=== PATIENT | male | born 1930 | race Caucasian/White ===

== ENCOUNTER 2018-07-25 11:01 | Inpatient (IN) ==
[2018-07-25] MEDS ORDERED: KETOROLAC 15 MG/1 ML VIAL IV PRN (15:12)
[2018-07-25] MEDS ORDERED: ALBUTEROL/IPRATROPIUM 3 ML NEB RESP TX PRN (15:12)
[2018-07-25] MEDS ORDERED: ONDANSETRON 4 MG/2 ML VIAL IV PRN (15:12)
[2018-07-25] MEDS ORDERED: GLUCAGON 1 MG VIAL IM PRN ×2 (15:12→20:40)
[2018-07-25] MEDS ORDERED: DEXTROSE 50% 25 GM/50 ML SYRINGE IV PRN (15:12)
[2018-07-25] MEDS ORDERED: NITROGLYCERIN SL 0.4 MG TABLET SL PRN (15:16)
[2018-07-25] MEDS: LACTATED RINGERS 1,000 ML IV SCH (16:20)
[2018-07-25] MEDS: POLYETHYLENE GLYCOL POWDER 17 GM PACK PO SCH (17:00)
[2018-07-25] MEDS: amLODIPine 2.5 MG TABLET PO SCH (17:00)
[2018-07-25] MEDS: SIMVASTATIN 10 MG TABLET PO SCH (17:01)
[2018-07-25] MEDS: INSULIN LISPRO 100 UNIT/ML SUBCUT SCH (17:15)
[2018-07-25] MEDS: PANTOPRAZOLE 40 MG TABLET PO SCH (17:15)
[2018-07-25] MEDS: glipiZIDE 10 MG TABLET PO SCH (17:15)
[2018-07-25] MEDS: ALBUTEROL/IPRATROPIUM 3 ML NEB RESP TX SCH (19:09)
[2018-07-25] MEDS ORDERED: DEXTROSE 50% 25 GM/50 ML VIAL IV PRN (20:40)
[2018-07-25] MEDS: MAGNESIUM OXIDE 400 MG TABLET PO SCH (21:13)
[2018-07-25] MEDS: GABAPENTIN 300 MG CAPSULE PO SCH (21:13)
[2018-07-25] MEDS: RANOLAZINE 500 MG TABLET PO SCH (21:13)
[2018-07-25] MEDS: INSULIN REGULAR 100 UNIT/ML SUBCUT SCH (21:17)
[2018-07-25] MEDS: ACETAMINOPHEN 325 MG TABLET PO PRN (21:18)
[2018-07-25] MEDS ORDERED: SODIUM CHLORIDE 0.9% 250 ML IV ONE (23:36)
[2018-07-25 23:54] LABS: Basophils % 0.3 % (0.0-0.8); Hematocrit 27.5 VOL% (42.0-52.0); Hemoglobin 8.7 GM/DL (14.0-18.0); Immature Granulocytes Absolute 0.08 #; Lymphocytes # 0.8 10*3/uL (1.4-4.0); Lymphocytes % 10.6 % (21.2-54.2); Mean Corpuscular HGB Conc 31.6 GM/DL (32-36); Mean Corpuscular Hemoglobin 29 PG (27-34); Mean Corpuscular Volume 91.7 FL (87-102); Mean Platelet Volume 10.4 FL (9.6-12.0); Monocytes # 0.4 10*3/uL (0.11-0.8); Monocytes % 5.3 % (1.7-12.7); Neutrophils # 6.4 10*3/uL (1.4-7.4); Neutrophils % 82.8 % (38.7-73.9); Platelet Count 333 T/CUMM (130-400); Red Cell Distribution Width 13.2 % (9.3-17.3); White Blood Count 7.7 T/CUMM (4-12)
[2018-07-26 00:17] LABS: Bilirubin,Total 0.4 MG/DL (0.2-1.0); Calcium 8.3 MG/DL (8.5-10.1); Osmolality,Calculated 288.2 MOS/KG (273-304); Potassium 4.7 MMOL/L (3.5-5.1); Total Protein 6.7 G/DL (6.4-8.3)
[2018-07-26 00:32] LABS: ABG Base Excess -1.1 MMOL/L (-2.5-2.5); ABG HCO3 23.5 MMOL/L (20-26); ABG Oxygen Saturation 95.6 % (95-100); ABG PCO2 41.4 MM HG (35-48); ABG PH 7.372 (7.35-7.45); ABG PO2 78.5 MM HG (80-95); ABG TCO2 22.2 MMOL/L (23-27); Allen Test Positive
[2018-07-26] MEDS: ALBUTEROL/IPRATROPIUM 3 ML NEB RESP TX SCH ×4 (00:40→20:18)
[2018-07-26 05:23] LABS: Basophils % 0.2 % (0.0-0.8); Hematocrit 25.5 VOL% (42.0-52.0); Hemoglobin 8.1 GM/DL (14.0-18.0); Immature Granulocytes % 0.5 %; Immature Granulocytes Absolute 0.05 #; Lymphocytes % 10.4 % (21.2-54.2); Mean Corpuscular HGB Conc 31.8 GM/DL (32-36); Mean Corpuscular Hemoglobin 29 PG (27-34); Mean Corpuscular Volume 91.1 FL (87-102); Mean Platelet Volume 10.4 FL (9.6-12.0); Monocytes # 0.7 10*3/uL (0.11-0.8); Neutrophils # 7.9 10*3/uL (1.4-7.4); Neutrophils % 81.9 % (38.7-73.9); Platelet Count 292 T/CUMM (130-400); Red Cell Distribution Width 13.3 % (9.3-17.3); White Blood Count 9.6 T/CUMM (4-12)
[2018-07-26 05:40] LABS: Calcium 8.4 MG/DL (8.5-10.1); Osmolality,Calculated 285.1 MOS/KG (273-304); Potassium 4.6 MMOL/L (3.5-5.1)
[2018-07-26 06:08] LABS: Apearance,Urine CLEAR (Clear); Bilirubin,Urine Negative (Negative); Blood, Urine Negative (Negative); Glucose,Urine (UA) Negative (Negative); Hyaline Casts,Urine 1 /LPF (0-3); Ketones,Urine Negative (Negative); Nitrite,Urine Negative (Negative); Protein,Urine Negative; RBC,Urine <1 /HPF (0-4); Urine Color Yellow (Yellow); Urine Specific Gravity 1.014 (1.001-1.035); Urine Urobilinogen < 2.0 EU/DL (0.2-1.0); WBC,Urine <1 /HPF (0-6)
[2018-07-26] MEDS: LEVOTHYROXINE 25 MCG TABLET PO SCH (06:43)
[2018-07-26] MEDS: LACTATED RINGERS 1,000 ML IV SCH ×2 (06:43→19:34)
[2018-07-26] MEDS: glipiZIDE 10 MG TABLET PO SCH ×2 (07:40→16:55)
[2018-07-26] MEDS: INSULIN REGULAR 100 UNIT/ML SUBCUT SCH (07:45)
[2018-07-26] MEDS: INSULIN LISPRO 100 UNIT/ML SUBCUT SCH ×3 (08:13→16:55)
[2018-07-26] MEDS ORDERED: CETIRIZINE 10 MG TABLET PO SCH (09:00)
[2018-07-26] MEDS: BISACODYL 5 MG TABLET PO SCH (09:21)
[2018-07-26] MEDS: PANTOPRAZOLE 40 MG TABLET PO SCH (09:21)
[2018-07-26] MEDS: RANOLAZINE 500 MG TABLET PO SCH ×2 (09:21→21:16)
[2018-07-26] MEDS: SIMVASTATIN 10 MG TABLET PO SCH (09:21)
[2018-07-26] MEDS: POLYETHYLENE GLYCOL POWDER 17 GM PACK PO SCH (09:22)
[2018-07-26] MEDS ORDERED: SODIUM CHLORIDE 0.9% 500 ML IV ONE ×2 (09:30→13:02)
[2018-07-26 10:32] LABS: % Iron Saturation 11.8 % (18-50)
[2018-07-26 10:41] LABS: B-Type Natriuretic Peptide 198 PG/ML (2-100)
[2018-07-26] MEDS: amLODIPine 2.5 MG TABLET PO SCH (10:44)
[2018-07-26 10:47] LABS: Folate > 24.0 NG/ML (5.4-24.0); Vitamin B12 226 PG/ML (211-911)
[2018-07-26 11:07] LABS: Free T4 (Free Thyroxine) 0.83 NG/DL (0.76-1.46); Thyroid Stimulating Hormone 4.02 uIU/ml (0.358-3.74)
[2018-07-26] MEDS: FERROUS SULFATE 325 MG TABLET PO SCH ×2 (11:44→21:16)
[2018-07-26] MEDS: CYANOCOBALAMIN 1000 MCG/1 ML VIAL IM SCH (11:44)
[2018-07-26] MEDS: SODIUM CHLORIDE 0.9% 1,000 ML IV SCH ×2 (14:30→21:16)
[2018-07-26] MEDS: GABAPENTIN 300 MG CAPSULE PO SCH (21:16)
[2018-07-26] MEDS: ASCORBIC ACID 500 MG TABLET PO SCH (21:17)
[2018-07-27] MEDS: SODIUM CHLORIDE 0.9% 1,000 ML IV SCH ×4 (01:42→21:13)
[2018-07-27] MEDS: ALBUTEROL/IPRATROPIUM 3 ML NEB RESP TX SCH ×4 (02:07→19:13)
[2018-07-27 04:58] LABS: Calcium 7.8 MG/DL (8.5-10.1); Osmolality,Calculated 285.4 MOS/KG (273-304)
[2018-07-27 05:49] LABS: Basophils % 0.4 % (0.0-0.8); Eosinophils # 0.1 10*3/uL (0.0-0.87); Eosinophils % 1.7 % (0.00-10.9); Hematocrit 18.4 VOL% (42.0-52.0); Immature Granulocytes % 0.7 %; Immature Granulocytes Absolute 0.06 #; Lymphocytes # 1.1 10*3/uL (1.4-4.0); Mean Corpuscular HGB Conc 32.6 GM/DL (32-36); Mean Corpuscular Hemoglobin 30 PG (27-34); Mean Corpuscular Volume 91.5 FL (87-102); Mean Platelet Volume 10.5 FL (9.6-12.0); Monocytes # 0.6 10*3/uL (0.11-0.8); Monocytes % 7.6 % (1.7-12.7); NRBC # 0.03 10*3/uL; Neutrophils # 6.3 10*3/uL (1.4-7.4); Neutrophils % 76.6 % (38.7-73.9); Platelet Count 180 T/CUMM (130-400); Red Blood Count 2.01 MC/CUMM (3.8-5.5); Red Cell Distribution Width 13.5 % (9.3-17.3); White Blood Count 8.2 T/CUMM (4-12)
[2018-07-27] MEDS: LEVOTHYROXINE 25 MCG TABLET PO SCH (06:39)
[2018-07-27] MEDS ORDERED: SODIUM CHLORIDE 0.9% 1,000 ML IV PRN (07:05)
[2018-07-27 08:57] LABS: Basophils % 0.4 % (0.0-0.8); Eosinophils # 0.2 10*3/uL (0.0-0.87); Eosinophils % 2.7 % (0.00-10.9); Hematocrit 18.3 VOL% (42.0-52.0); Immature Granulocytes % 0.8 %; Immature Granulocytes Absolute 0.07 #; Lymphocytes # 1.3 10*3/uL (1.4-4.0); Lymphocytes % 14.9 % (21.2-54.2); Mean Corpuscular HGB Conc 31.7 GM/DL (32-36); Mean Corpuscular Hemoglobin 29 PG (27-34); Mean Corpuscular Volume 92.9 FL (87-102); Mean Platelet Volume 10.7 FL (9.6-12.0); Monocytes # 0.9 10*3/uL (0.11-0.8); NRBC # 0.02 10*3/uL; Neutrophils % 71.2 % (38.7-73.9); Platelet Count 178 T/CUMM (130-400); Red Blood Count 1.97 MC/CUMM (3.8-5.5); Red Cell Distribution Width 13.6 % (9.3-17.3); White Blood Count 8.5 T/CUMM (4-12)
[2018-07-27] MEDS ORDERED: ASPIRIN EC 81 MG TABLET PO SCH (09:00)
[2018-07-27 09:03] LABS: Hemoglobin 5.8 GM/DL (14.0-18.0)
[2018-07-27] MEDS: glipiZIDE 10 MG TABLET PO SCH ×2 (09:08→16:45)
[2018-07-27] MEDS: INSULIN LISPRO 100 UNIT/ML SUBCUT SCH ×3 (09:08→16:45)
[2018-07-27] MEDS: RANOLAZINE 500 MG TABLET PO SCH ×2 (09:09→21:28)
[2018-07-27] MEDS: POLYETHYLENE GLYCOL POWDER 17 GM PACK PO SCH (09:09)
[2018-07-27] MEDS: ASCORBIC ACID 500 MG TABLET PO SCH ×2 (09:09→21:28)
[2018-07-27] MEDS: amLODIPine 2.5 MG TABLET PO SCH (09:09)
[2018-07-27] MEDS: FERROUS SULFATE 325 MG TABLET PO SCH ×2 (09:09→21:27)
[2018-07-27] MEDS: PANTOPRAZOLE 40 MG TABLET PO SCH (09:09)
[2018-07-27] MEDS: BISACODYL 5 MG TABLET PO SCH (09:09)
[2018-07-27] MEDS: SIMVASTATIN 10 MG TABLET PO SCH (09:09)
[2018-07-27] MEDS ORDERED: HALOPERIDOL 5 MG/ML AMP ONE (09:38)
[2018-07-27] MEDS ORDERED: LORazepam 2 MG/1 ML VIAL ONE (09:44)
[2018-07-27] MEDS ORDERED: HALOPERIDOL 5 MG/ML AMP IV ONE (10:07)
[2018-07-27] MEDS ORDERED: LORazepam 2 MG/1 ML VIAL IV ONE (10:08)
[2018-07-27] MEDS ORDERED: FUROSEMIDE 40 MG/4 ML VIAL IV ONE ×2 (10:47→14:35)
[2018-07-27] MEDS: HYDROmorphone 2 MG/1 ML VIAL IV PRN (12:03)
[2018-07-27] MEDS: CYANOCOBALAMIN 1000 MCG/1 ML VIAL IM SCH (13:20)
[2018-07-27 15:54] LABS: Hematocrit 27.8 VOL% (42.0-52.0); Hemoglobin 8.8 GM/DL (14.0-18.0)
[2018-07-27] MEDS ORDERED: risperiDONE 0.25 MG TABLET PO PRN (18:50)
[2018-07-27] MEDS: DOCUSATE SODIUM 100 MG CAPSULE PO SCH (21:27)
[2018-07-27] MEDS: GABAPENTIN 300 MG CAPSULE PO SCH (21:28)
[2018-07-28] MEDS: ALBUTEROL/IPRATROPIUM 3 ML NEB RESP TX SCH ×4 (01:40→20:21)
[2018-07-28 04:29] LABS: Calcium 7.8 MG/DL (8.5-10.1); Osmolality,Calculated 288.8 MOS/KG (273-304); Potassium 5.4 MMOL/L (3.5-5.1)
[2018-07-28] MEDS: LEVOTHYROXINE 25 MCG TABLET PO SCH (05:59)
[2018-07-28 07:30] LABS: Basophils % 0.2 % (0.0-0.8); Eosinophils # 0.1 10*3/uL (0.0-0.87); Eosinophils % 0.8 % (0.00-10.9); Hemoglobin 7.6 GM/DL (14.0-18.0); Immature Granulocytes % 0.8 %; Immature Granulocytes Absolute 0.07 #; Lymphocytes # 0.7 10*3/uL (1.4-4.0); Lymphocytes % 8.5 % (21.2-54.2); Mean Corpuscular HGB Conc 31.7 GM/DL (32-36); Mean Corpuscular Hemoglobin 29 PG (27-34); Mean Corpuscular Volume 91.3 FL (87-102); Mean Platelet Volume 10.5 FL (9.6-12.0); Monocytes # 0.8 10*3/uL (0.11-0.8); Monocytes % 9.1 % (1.7-12.7); NRBC # 0.03 10*3/uL; Neutrophils # 6.7 10*3/uL (1.4-7.4); Neutrophils % 80.6 % (38.7-73.9); Platelet Count 176 T/CUMM (130-400); Red Blood Count 2.63 MC/CUMM (3.8-5.5); Red Cell Distribution Width 13.9 % (9.3-17.3); White Blood Count 8.4 T/CUMM (4-12)
[2018-07-28] MEDS ORDERED: SODIUM POLYSTYRENE SULFATE 15 GM/60 ML BOTTLE PO PRN (08:35)
[2018-07-28] MEDS ORDERED: FUROSEMIDE 40 MG/4 ML VIAL IV SCH (09:00)
[2018-07-28] MEDS: POLYETHYLENE GLYCOL POWDER 17 GM PACK PO SCH (09:27)
[2018-07-28] MEDS: CYANOCOBALAMIN 1000 MCG/1 ML VIAL IM SCH (09:27)
[2018-07-28] MEDS: glipiZIDE 5 MG TABLET PO SCH ×2 (09:28→17:35)
[2018-07-28] MEDS: SIMVASTATIN 10 MG TABLET PO SCH (09:28)
[2018-07-28] MEDS: RANOLAZINE 500 MG TABLET PO SCH ×2 (09:28→21:37)
[2018-07-28] MEDS: PANTOPRAZOLE 40 MG TABLET PO SCH (09:28)
[2018-07-28] MEDS: DOCUSATE SODIUM 100 MG CAPSULE PO SCH ×2 (09:29→21:37)
[2018-07-28] MEDS: amLODIPine 2.5 MG TABLET PO SCH (09:29)
[2018-07-28] MEDS: INSULIN LISPRO 100 UNIT/ML SUBCUT SCH ×3 (09:29→17:35)
[2018-07-28] MEDS: BISACODYL 5 MG TABLET PO SCH (09:29)
[2018-07-28] MEDS: FERROUS SULFATE 325 MG TABLET PO SCH ×2 (09:29→21:37)
[2018-07-28] MEDS: SODIUM CHLORIDE 0.9% 1,000 ML IV SCH (11:34)
[2018-07-28] MEDS: CARVEDILOL 3.125 MG TABLET PO SCH ×2 (11:35→17:35)
[2018-07-28] MEDS: ASCORBIC ACID 500 MG TABLET PO SCH ×2 (11:35→21:37)
[2018-07-28] MEDS ORDERED: SODIUM CHLORIDE 0.9% 1,000 ML IV PRN (12:48)
[2018-07-28] MEDS: SODIUM BICARB INJ 100 MEQ in DEXTROSE 5% 1,000 ML IV SCH (14:34)
[2018-07-28] MEDS: LORazepam 2 MG/1 ML VIAL IV PRN (19:06)
[2018-07-28] MEDS: HYDROmorphone 2 MG/1 ML VIAL IV PRN (19:41)
[2018-07-28] MEDS: GABAPENTIN 300 MG CAPSULE PO SCH (21:37)
[2018-07-28 22:20] LABS: Hematocrit 31.4 VOL% (42.0-52.0)
[2018-07-29] MEDS: ALBUTEROL/IPRATROPIUM 3 ML NEB RESP TX SCH ×4 (00:32→19:25)
[2018-07-29 04:10] LABS: Basophils % 0.4 % (0.0-0.8); Eosinophils # 0.4 10*3/uL (0.0-0.87); Eosinophils % 4.4 % (0.00-10.9); Hematocrit 31.8 VOL% (42.0-52.0); Hemoglobin 10.3 GM/DL (14.0-18.0); Immature Granulocytes % 0.6 %; Immature Granulocytes Absolute 0.05 #; Lymphocytes # 0.8 10*3/uL (1.4-4.0); Lymphocytes % 9.8 % (21.2-54.2); Mean Corpuscular HGB Conc 32.4 GM/DL (32-36); Mean Corpuscular Hemoglobin 29 PG (27-34); Mean Corpuscular Volume 89.1 FL (87-102); Mean Platelet Volume 10.3 FL (9.6-12.0); Monocytes # 0.9 10*3/uL (0.11-0.8); Monocytes % 11.4 % (1.7-12.7); NRBC # 0.04 10*3/uL; Neutrophils # 5.9 10*3/uL (1.4-7.4); Neutrophils % 73.4 % (38.7-73.9); Platelet Count 166 T/CUMM (130-400); Red Blood Count 3.57 MC/CUMM (3.8-5.5); Red Cell Distribution Width 14.5 % (9.3-17.3)
[2018-07-29 04:20] LABS: PT Patient Result 11.3 SECS; Partial Thromboplastin Time 28.6 SECS (0-40)
[2018-07-29 04:32] LABS: Potassium 4.3 MMOL/L (3.5-5.1)
[2018-07-29] MEDS: SODIUM BICARB INJ 100 MEQ in DEXTROSE 5% 1,000 ML IV SCH (05:39)
[2018-07-29] MEDS: LEVOTHYROXINE 25 MCG TABLET PO SCH (06:59)
[2018-07-29] MEDS: glipiZIDE 5 MG TABLET PO SCH ×2 (08:01→16:12)
[2018-07-29] MEDS: INSULIN LISPRO 100 UNIT/ML SUBCUT SCH ×3 (09:00→17:55)
[2018-07-29] MEDS: DOCUSATE SODIUM 100 MG CAPSULE PO SCH (09:03)
[2018-07-29] MEDS: PANTOPRAZOLE 40 MG TABLET PO SCH (09:04)
[2018-07-29] MEDS: CARVEDILOL 3.125 MG TABLET PO SCH ×2 (09:50→16:13)
[2018-07-29] MEDS: BISACODYL 5 MG TABLET PO SCH (09:50)
[2018-07-29] MEDS: FERROUS SULFATE 325 MG TABLET PO SCH (09:50)
[2018-07-29] MEDS: ASCORBIC ACID 500 MG TABLET PO SCH (09:51)
[2018-07-29] MEDS: FUROSEMIDE 40 MG TABLET PO SCH (09:51)
[2018-07-29] MEDS: amLODIPine 2.5 MG TABLET PO SCH (09:51)
[2018-07-29] MEDS: RANOLAZINE 500 MG TABLET PO SCH (09:51)
[2018-07-29] MEDS: SIMVASTATIN 10 MG TABLET PO SCH (09:51)
[2018-07-29] MEDS: POLYETHYLENE GLYCOL POWDER 17 GM PACK PO SCH (09:51)
[2018-07-29] MEDS ORDERED: HALOPERIDOL 5 MG/ML AMP IV PRN (10:42)
[2018-07-29] MEDS: LORazepam 2 MG/1 ML VIAL IV PRN ×2 (15:20→23:55)
[2018-07-29] MEDS: HYDROmorphone 2 MG/1 ML VIAL IV PRN (16:48)
[2018-07-29] MEDS: HALOPERIDOL 5 MG/ML AMP IV PRN (20:14)
[2018-07-30] MEDS: ALBUTEROL/IPRATROPIUM 3 ML NEB RESP TX SCH ×4 (00:31→19:36)
[2018-07-30] MEDS: RANOLAZINE 500 MG TABLET PO SCH ×3 (00:41→20:00)
[2018-07-30] MEDS: DOCUSATE SODIUM 100 MG CAPSULE PO SCH ×3 (00:41→20:00)
[2018-07-30] MEDS: FERROUS SULFATE 325 MG TABLET PO SCH ×3 (00:41→20:00)
[2018-07-30] MEDS: GABAPENTIN 300 MG CAPSULE PO SCH ×2 (00:41→20:00)
[2018-07-30] MEDS: ASCORBIC ACID 500 MG TABLET PO SCH ×3 (00:42→20:00)
[2018-07-30] MEDS: HALOPERIDOL 5 MG/ML AMP IV PRN ×3 (02:27→15:41)
[2018-07-30 05:21] LABS: Basophils % 0.4 % (0.0-0.8); Eosinophils # 0.2 10*3/uL (0.0-0.87); Hematocrit 31.6 VOL% (42.0-52.0); Hemoglobin 10.1 GM/DL (14.0-18.0); Immature Granulocytes % 0.7 %; Immature Granulocytes Absolute 0.05 #; Lymphocytes # 0.6 10*3/uL (1.4-4.0); Lymphocytes % 8.1 % (21.2-54.2); Mean Corpuscular Hemoglobin 29 PG (27-34); Mean Corpuscular Volume 89.3 FL (87-102); Monocytes # 0.9 10*3/uL (0.11-0.8); Monocytes % 11.8 % (1.7-12.7); Neutrophils # 5.8 10*3/uL (1.4-7.4); Platelet Count 193 T/CUMM (130-400); Red Blood Count 3.54 MC/CUMM (3.8-5.5); Red Cell Distribution Width 14.6 % (9.3-17.3); White Blood Count 7.6 T/CUMM (4-12)
[2018-07-30 05:42] LABS: Calcium 8.5 MG/DL (8.5-10.1); Osmolality,Calculated 286.3 MOS/KG (273-304); Potassium 3.8 MMOL/L (3.5-5.1)
[2018-07-30] MEDS: LEVOTHYROXINE 25 MCG TABLET PO SCH (06:20)
[2018-07-30] MEDS: INSULIN LISPRO 100 UNIT/ML SUBCUT SCH ×3 (08:36→17:34)
[2018-07-30] MEDS: CARVEDILOL 3.125 MG TABLET PO SCH ×2 (08:36→17:33)
[2018-07-30] MEDS: glipiZIDE 5 MG TABLET PO SCH ×2 (08:36→17:33)
[2018-07-30] MEDS: BISACODYL 5 MG TABLET PO SCH (09:22)
[2018-07-30] MEDS: FUROSEMIDE 40 MG TABLET PO SCH (09:23)
[2018-07-30] MEDS: POLYETHYLENE GLYCOL POWDER 17 GM PACK PO SCH (09:23)
[2018-07-30] MEDS: amLODIPine 2.5 MG TABLET PO SCH (09:23)
[2018-07-30] MEDS: PANTOPRAZOLE 40 MG TABLET PO SCH (09:23)
[2018-07-30] MEDS: MAGNESIUM OXIDE 400 MG TABLET PO SCH ×2 (09:23→20:00)
[2018-07-30] MEDS: SIMVASTATIN 10 MG TABLET PO SCH (09:24)
[2018-07-30] MEDS: LORazepam 2 MG/1 ML VIAL IV PRN ×2 (10:57→15:40)
[2018-07-30] MEDS ORDERED: PANTOPRAZOLE 40 MG VIAL IV SCH (12:00)
[2018-07-30] MEDS ORDERED: FUROSEMIDE 40 MG/4 ML VIAL IV SCH (16:00)
[2018-07-30] MEDS ORDERED: LORazepam 2 MG/1 ML VIAL IM PRN (18:54)
[2018-07-30] MEDS: HALOPERIDOL 5 MG/ML AMP IM PRN (20:14)
[2018-07-31] MEDS: HALOPERIDOL 5 MG/ML AMP IM PRN ×5 (00:12→21:41)
[2018-07-31] MEDS: ALBUTEROL/IPRATROPIUM 3 ML NEB RESP TX SCH ×4 (01:02→19:24)
[2018-07-31 05:38] LABS: Basophils % 0.2 % (0.0-0.8); Eosinophils # 0.1 10*3/uL (0.0-0.87); Eosinophils % 1.2 % (0.00-10.9); Hematocrit 34.7 VOL% (42.0-52.0); Immature Granulocytes % 0.7 %; Immature Granulocytes Absolute 0.07 #; Lymphocytes # 0.6 10*3/uL (1.4-4.0); Lymphocytes % 6.4 % (21.2-54.2); Mean Corpuscular HGB Conc 31.7 GM/DL (32-36); Mean Corpuscular Hemoglobin 28 PG (27-34); Mean Corpuscular Volume 89.4 FL (87-102); Mean Platelet Volume 10.8 FL (9.6-12.0); Monocytes # 1.3 10*3/uL (0.11-0.8); Monocytes % 12.6 % (1.7-12.7); Neutrophils # 7.9 10*3/uL (1.4-7.4); Neutrophils % 78.9 % (38.7-73.9); Platelet Count 249 T/CUMM (130-400); Red Blood Count 3.88 MC/CUMM (3.8-5.5); Red Cell Distribution Width 14.4 % (9.3-17.3)
[2018-07-31 05:51] LABS: Calcium 8.9 MG/DL (8.5-10.1); Potassium 3.3 MMOL/L (3.5-5.1)
[2018-07-31] MEDS: glipiZIDE 5 MG TABLET PO SCH ×2 (08:50→16:28)
[2018-07-31] MEDS: INSULIN LISPRO 100 UNIT/ML SUBCUT SCH ×3 (08:51→16:28)
[2018-07-31] MEDS: DOCUSATE SODIUM 100 MG CAPSULE PO SCH ×2 (09:05→20:03)
[2018-07-31] MEDS: FERROUS SULFATE 325 MG TABLET PO SCH ×2 (09:05→20:03)
[2018-07-31] MEDS: BISACODYL 5 MG TABLET PO SCH (09:05)
[2018-07-31] MEDS: CARVEDILOL 3.125 MG TABLET PO SCH ×2 (09:05→16:28)
[2018-07-31] MEDS: SIMVASTATIN 10 MG TABLET PO SCH (09:06)
[2018-07-31] MEDS: amLODIPine 2.5 MG TABLET PO SCH (09:06)
[2018-07-31] MEDS: ASCORBIC ACID 500 MG TABLET PO SCH ×2 (09:06→20:04)
[2018-07-31] MEDS: RANOLAZINE 500 MG TABLET PO SCH ×2 (09:06→20:04)
[2018-07-31] MEDS: MAGNESIUM OXIDE 400 MG TABLET PO SCH ×2 (09:06→20:03)
[2018-07-31] MEDS: POLYETHYLENE GLYCOL POWDER 17 GM PACK PO SCH (09:06)
[2018-07-31] MEDS: GABAPENTIN 300 MG CAPSULE PO SCH (20:04)
[2018-08-01] MEDS: ALBUTEROL/IPRATROPIUM 3 ML NEB RESP TX SCH ×4 (01:00→19:13)
[2018-08-01] MEDS: HALOPERIDOL 5 MG/ML AMP IM PRN ×2 (02:05→07:55)
[2018-08-01] MEDS: CARVEDILOL 3.125 MG TABLET PO SCH ×2 (08:38→18:10)
[2018-08-01] MEDS: BISACODYL 5 MG TABLET PO SCH (10:44)
[2018-08-01] MEDS: DOCUSATE SODIUM 100 MG CAPSULE PO SCH (10:44)
[2018-08-01] MEDS: glipiZIDE 5 MG TABLET PO SCH ×2 (10:44→18:10)
[2018-08-01] MEDS: FERROUS SULFATE 325 MG TABLET PO SCH (10:45)
[2018-08-01] MEDS: amLODIPine 2.5 MG TABLET PO SCH (10:46)
[2018-08-01] MEDS: MAGNESIUM OXIDE 400 MG TABLET PO SCH (10:46)
[2018-08-01] MEDS: POLYETHYLENE GLYCOL POWDER 17 GM PACK PO SCH (10:46)
[2018-08-01] MEDS: ASCORBIC ACID 500 MG TABLET PO SCH (10:47)
[2018-08-01] MEDS: RANOLAZINE 500 MG TABLET PO SCH (10:47)
[2018-08-01] MEDS: SIMVASTATIN 10 MG TABLET PO SCH (10:48)
[2018-08-01] MEDS: INSULIN LISPRO 100 UNIT/ML SUBCUT SCH ×3 (12:55→19:04)
[2018-08-01] MEDS ORDERED: DILTIAZEM 60 MG TABLET PO ONE (19:50)
[2018-08-01] MEDS ORDERED: CARVEDILOL 3.125 MG TABLET PO ONE (19:50)
[2018-08-02] MEDS: ALBUTEROL/IPRATROPIUM 3 ML NEB RESP TX SCH ×4 (00:23→19:57)
[2018-08-02] MEDS: FERROUS SULFATE 325 MG TABLET PO SCH ×3 (00:31→23:50)
[2018-08-02] MEDS: DOCUSATE SODIUM 100 MG CAPSULE PO SCH ×3 (00:31→23:50)
[2018-08-02] MEDS: MAGNESIUM OXIDE 400 MG TABLET PO SCH ×3 (00:32→23:50)
[2018-08-02] MEDS: RANOLAZINE 500 MG TABLET PO SCH ×3 (00:36→23:51)
[2018-08-02] MEDS: GABAPENTIN 300 MG CAPSULE PO SCH ×2 (00:36→23:50)
[2018-08-02] MEDS: ASCORBIC ACID 500 MG TABLET PO SCH ×3 (00:37→23:51)
[2018-08-02 04:44] LABS: Basophils % 0.3 % (0.0-0.8); Eosinophils # 0.2 10*3/uL (0.0-0.87); Eosinophils % 1.6 % (0.00-10.9); Hematocrit 36.9 VOL% (42.0-52.0); Hemoglobin 11.4 GM/DL (14.0-18.0); Immature Granulocytes % 0.5 %; Immature Granulocytes Absolute 0.06 #; Lymphocytes # 0.5 10*3/uL (1.4-4.0); Lymphocytes % 4.8 % (21.2-54.2); Mean Corpuscular HGB Conc 30.9 GM/DL (32-36); Mean Corpuscular Hemoglobin 28 PG (27-34); Mean Corpuscular Volume 90.7 FL (87-102); Mean Platelet Volume 10.6 FL (9.6-12.0); Monocytes % 8.8 % (1.7-12.7); Neutrophils # 9.2 10*3/uL (1.4-7.4); Platelet Count 279 T/CUMM (130-400); Red Blood Count 4.07 MC/CUMM (3.8-5.5); Red Cell Distribution Width 14.4 % (9.3-17.3)
[2018-08-02 05:00] LABS: Calcium 8.8 MG/DL (8.5-10.1); Osmolality,Calculated 290.1 MOS/KG (273-304); Potassium 3.2 MMOL/L (3.5-5.1)
[2018-08-02 05:15] LABS: Lymphocytes 5 % (20-55); Myelocytes 1 %; Platelet Estimate Normal; Segmented Neutrophils 87 % (50-85); Total Cells Counted 100
[2018-08-02 05:16] LABS: Polychromasia Few
[2018-08-02] MEDS: glipiZIDE 5 MG TABLET PO SCH ×2 (08:48→18:55)
[2018-08-02] MEDS: amLODIPine 2.5 MG TABLET PO SCH (08:48)
[2018-08-02] MEDS: POTASSIUM CHLORIDE 20 MEQ/15 ML UDCUP PO PRN (08:49)
[2018-08-02] MEDS: CARVEDILOL 3.125 MG TABLET PO SCH ×2 (08:49→18:56)
[2018-08-02] MEDS: INSULIN LISPRO 100 UNIT/ML SUBCUT SCH ×3 (08:49→18:56)
[2018-08-02] MEDS: BISACODYL 5 MG TABLET PO SCH (08:49)
[2018-08-02] MEDS: POLYETHYLENE GLYCOL POWDER 17 GM PACK PO SCH (08:50)
[2018-08-02] MEDS: SIMVASTATIN 10 MG TABLET PO SCH (08:50)
[2018-08-02 12:30] LABS: Hematocrit 38.1 VOL% (42.0-52.0); Hemoglobin 12.3 GM/DL (14.0-18.0)
[2018-08-03] MEDS: ALBUTEROL/IPRATROPIUM 3 ML NEB RESP TX SCH ×4 (03:13→19:10)
[2018-08-03] MEDS: POTASSIUM CHLORIDE 20 MEQ/15 ML UDCUP PO PRN ×2 (05:00→06:50)
[2018-08-03] MEDS: INSULIN LISPRO 100 UNIT/ML SUBCUT SCH ×3 (07:53→17:59)
[2018-08-03] MEDS: glipiZIDE 5 MG TABLET PO SCH ×2 (07:53→17:59)
[2018-08-03] MEDS: CARVEDILOL 3.125 MG TABLET PO SCH ×2 (07:53→17:59)
[2018-08-03] MEDS: FERROUS SULFATE 325 MG TABLET PO SCH ×2 (09:16→22:27)
[2018-08-03] MEDS: SIMVASTATIN 10 MG TABLET PO SCH (09:16)
[2018-08-03] MEDS: ASCORBIC ACID 500 MG TABLET PO SCH ×2 (09:16→22:26)
[2018-08-03] MEDS: RANOLAZINE 500 MG TABLET PO SCH ×2 (09:16→22:27)
[2018-08-03] MEDS: amLODIPine 2.5 MG TABLET PO SCH (09:16)
[2018-08-03] MEDS: BISACODYL 5 MG TABLET PO SCH (09:31)
[2018-08-03] MEDS: DOCUSATE SODIUM 100 MG CAPSULE PO SCH ×2 (09:31→22:27)
[2018-08-03] MEDS: POLYETHYLENE GLYCOL POWDER 17 GM PACK PO SCH (09:32)
[2018-08-03] MEDS: MAGNESIUM OXIDE 400 MG TABLET PO SCH ×2 (09:32→22:26)
[2018-08-03 10:10] LABS: Basophils % 0.3 % (0.0-0.8); Eosinophils # 0.2 10*3/uL (0.0-0.87); Eosinophils % 1.9 % (0.00-10.9); Hematocrit 37.1 VOL% (42.0-52.0); Hemoglobin 11.7 GM/DL (14.0-18.0); Immature Granulocytes % 1.1 %; Immature Granulocytes Absolute 0.12 #; Lymphocytes # 0.7 10*3/uL (1.4-4.0); Lymphocytes % 6.7 % (21.2-54.2); Mean Corpuscular HGB Conc 31.5 GM/DL (32-36); Mean Corpuscular Hemoglobin 29 PG (27-34); Mean Corpuscular Volume 90.5 FL (87-102); Mean Platelet Volume 10.1 FL (9.6-12.0); Monocytes # 0.8 10*3/uL (0.11-0.8); Monocytes % 7.6 % (1.7-12.7); Neutrophils # 9.2 10*3/uL (1.4-7.4); Neutrophils % 82.4 % (38.7-73.9); Platelet Count 294 T/CUMM (130-400); Red Cell Distribution Width 14.5 % (9.3-17.3); White Blood Count 11.1 T/CUMM (4-12)
[2018-08-03 10:28] LABS: Calcium 8.4 MG/DL (8.5-10.1); Osmolality,Calculated 290.1 MOS/KG (273-304); Potassium 3.5 MMOL/L (3.5-5.1)
[2018-08-03] MEDS: traZODone 50 MG TABLET PO PRN (22:26)
[2018-08-03] MEDS: GABAPENTIN 300 MG CAPSULE PO SCH (22:27)
[2018-08-04] MEDS: ACETAMINOPHEN 325 MG TABLET PO PRN (00:03)
[2018-08-04] MEDS: ALBUTEROL/IPRATROPIUM 3 ML NEB RESP TX SCH ×4 (00:40→19:23)
[2018-08-04 06:16] LABS: Basophils % 0.4 % (0.0-0.8); Eosinophils # 0.5 10*3/uL (0.0-0.87); Eosinophils % 5.4 % (0.00-10.9); Hematocrit 34.8 VOL% (42.0-52.0); Hemoglobin 10.9 GM/DL (14.0-18.0); Immature Granulocytes % 1.5 %; Immature Granulocytes Absolute 0.15 #; Lymphocytes # 0.9 10*3/uL (1.4-4.0); Mean Corpuscular HGB Conc 31.3 GM/DL (32-36); Mean Corpuscular Hemoglobin 28 PG (27-34); Mean Corpuscular Volume 90.2 FL (87-102); Mean Platelet Volume 10.7 FL (9.6-12.0); Monocytes # 0.9 10*3/uL (0.11-0.8); Neutrophils # 7.3 10*3/uL (1.4-7.4); Neutrophils % 74.7 % (38.7-73.9); Platelet Count 273 T/CUMM (130-400); Red Blood Count 3.86 MC/CUMM (3.8-5.5); Red Cell Distribution Width 14.1 % (9.3-17.3); White Blood Count 9.7 T/CUMM (4-12)
[2018-08-04 06:34] LABS: Calcium 8.3 MG/DL (8.5-10.1); Osmolality,Calculated 285.5 MOS/KG (273-304); Potassium 3.3 MMOL/L (3.5-5.1)
[2018-08-04] MEDS ORDERED: POTASSIUM CHLORIDE 20 MEQ/15 ML UDCUP PO PRN (10:14)
[2018-08-04] MEDS: SIMVASTATIN 10 MG TABLET PO SCH (10:41)
[2018-08-04] MEDS: BISACODYL 5 MG TABLET PO SCH (10:41)
[2018-08-04] MEDS: amLODIPine 2.5 MG TABLET PO SCH (10:41)
[2018-08-04] MEDS: MAGNESIUM OXIDE 400 MG TABLET PO SCH (10:41)
[2018-08-04] MEDS: DOCUSATE SODIUM 100 MG CAPSULE PO SCH (10:41)
[2018-08-04] MEDS: RANOLAZINE 500 MG TABLET PO SCH (10:41)
[2018-08-04] MEDS: POLYETHYLENE GLYCOL POWDER 17 GM PACK PO SCH (10:41)
[2018-08-04] MEDS: INSULIN LISPRO 100 UNIT/ML SUBCUT SCH ×3 (10:42→18:40)
[2018-08-04] MEDS: ASCORBIC ACID 500 MG TABLET PO SCH (10:42)
[2018-08-04] MEDS: FERROUS SULFATE 325 MG TABLET PO SCH (10:42)
[2018-08-04] MEDS: glipiZIDE 5 MG TABLET PO SCH ×2 (10:42→18:40)
[2018-08-04] MEDS: CARVEDILOL 3.125 MG TABLET PO SCH ×2 (10:42→18:40)
[2018-08-05] MEDS: ALBUTEROL/IPRATROPIUM 3 ML NEB RESP TX SCH ×4 (01:10→19:18)
[2018-08-05] MEDS: DOCUSATE SODIUM 100 MG CAPSULE PO SCH ×3 (01:40→21:39)
[2018-08-05] MEDS: ASCORBIC ACID 500 MG TABLET PO SCH ×3 (01:40→21:39)
[2018-08-05] MEDS: FERROUS SULFATE 325 MG TABLET PO SCH ×3 (01:40→21:39)
[2018-08-05] MEDS: MAGNESIUM OXIDE 400 MG TABLET PO SCH ×3 (01:40→21:39)
[2018-08-05] MEDS: GABAPENTIN 300 MG CAPSULE PO SCH ×2 (01:40→21:39)
[2018-08-05] MEDS: RANOLAZINE 500 MG TABLET PO SCH ×3 (01:40→21:39)
[2018-08-05] MEDS: POLYETHYLENE GLYCOL POWDER 17 GM PACK PO SCH (08:11)
[2018-08-05] MEDS: SIMVASTATIN 10 MG TABLET PO SCH (08:12)
[2018-08-05] MEDS: BISACODYL 5 MG TABLET PO SCH (08:12)
[2018-08-05] MEDS: CARVEDILOL 3.125 MG TABLET PO SCH ×2 (08:12→17:25)
[2018-08-05] MEDS: glipiZIDE 5 MG TABLET PO SCH ×2 (08:12→17:25)
[2018-08-05] MEDS: INSULIN LISPRO 100 UNIT/ML SUBCUT SCH ×3 (08:12→17:25)
[2018-08-05] MEDS: amLODIPine 2.5 MG TABLET PO SCH (08:13)
[2018-08-05 12:52] LABS: Hematocrit 33.2 VOL% (42.0-52.0); Hemoglobin 10.5 GM/DL (14.0-18.0)
[2018-08-06] MEDS: ALBUTEROL/IPRATROPIUM 3 ML NEB RESP TX SCH ×3 (00:24→19:17)
[2018-08-06] MEDS ORDERED: SODIUM CHLORIDE 0.9% 1,000 ML IV SCH (09:00)
[2018-08-06 09:51] LABS: Basophils % 0.2 % (0.0-0.8); Eosinophils # 0.1 10*3/uL (0.0-0.87); Eosinophils % 0.4 % (0.00-10.9); Hematocrit 34.6 VOL% (42.0-52.0); Hemoglobin 10.9 GM/DL (14.0-18.0); Immature Granulocytes % 1.6 %; Immature Granulocytes Absolute 0.31 #; Lymphocytes # 0.6 10*3/uL (1.4-4.0); Lymphocytes % 3.4 % (21.2-54.2); Mean Corpuscular HGB Conc 31.5 GM/DL (32-36); Mean Corpuscular Hemoglobin 28 PG (27-34); Mean Corpuscular Volume 90.1 FL (87-102); Mean Platelet Volume 10.8 FL (9.6-12.0); Monocytes # 1.6 10*3/uL (0.11-0.8); Monocytes % 8.3 % (1.7-12.7); Neutrophils # 16.2 10*3/uL (1.4-7.4); Neutrophils % 86.1 % (38.7-73.9); Platelet Count 323 T/CUMM (130-400); Red Blood Count 3.84 MC/CUMM (3.8-5.5); Red Cell Distribution Width 14.2 % (9.3-17.3); White Blood Count 18.8 T/CUMM (4-12)
[2018-08-06 10:01] LABS: INR 1.6; PT Patient Result 17.5 SECS; Partial Thromboplastin Time 36.6 SECS (0-40)
[2018-08-06 10:11] LABS: Calcium 8.2 MG/DL (8.5-10.1); Osmolality,Calculated 286.7 MOS/KG (273-304); Potassium 4.9 MMOL/L (3.5-5.1)
[2018-08-06 10:14] LABS: Band Neutrophils 1 % (0-10); Hypochromasia 1+; Lymphocytes 1 % (20-55); Platelet Estimate Adequate; Segmented Neutrophils 90 % (50-85); Total Cells Counted 100
[2018-08-06] MEDS ORDERED: LIDOCAINE 1%/EPI INJ 20 ML VIAL ONE (10:14)
[2018-08-06] MEDS ORDERED: BUPIVACAINE 0.5% 50 ML VIAL ONE (10:14)
[2018-08-06] MEDS ORDERED: SODIUM CHLORIDE 0.9% 1,000 ML IV PRN ×2 (11:14→12:32)
[2018-08-06] MEDS: CARVEDILOL 3.125 MG TABLET PO SCH ×2 (11:29→17:24)
[2018-08-06] MEDS: INSULIN LISPRO 100 UNIT/ML SUBCUT SCH ×2 (11:29→16:22)
[2018-08-06] MEDS: glipiZIDE 5 MG TABLET PO SCH ×2 (11:29→17:24)
[2018-08-06] MEDS: RANOLAZINE 500 MG TABLET PO SCH ×2 (11:30→20:55)
[2018-08-06] MEDS: SIMVASTATIN 10 MG TABLET PO SCH (11:30)
[2018-08-06] MEDS: BISACODYL 5 MG TABLET PO SCH (11:30)
[2018-08-06] MEDS: POLYETHYLENE GLYCOL POWDER 17 GM PACK PO SCH (11:30)
[2018-08-06] MEDS: MAGNESIUM OXIDE 400 MG TABLET PO SCH (11:30)
[2018-08-06] MEDS: FERROUS SULFATE 325 MG TABLET PO SCH ×2 (11:30→20:55)
[2018-08-06] MEDS: ASCORBIC ACID 500 MG TABLET PO SCH ×2 (11:30→20:55)
[2018-08-06] MEDS: amLODIPine 2.5 MG TABLET PO SCH (11:30)
[2018-08-06] MEDS: DOCUSATE SODIUM 100 MG CAPSULE PO SCH ×2 (11:30→20:54)
[2018-08-06] MEDS ORDERED: METOPROLOL TARTRATE 5 MG/5 ML VIAL IV ONE ×2 (14:57→14:59)
[2018-08-06] MEDS ORDERED: ETOMIDATE 40 MG/20 ML VIAL IV ONE (15:07)
[2018-08-06] MEDS ORDERED: ROCURONIUM 100 MG/10 ML VIAL IV ONE (15:07)
[2018-08-06] MEDS ORDERED: DESFLURANE 1 UNIT/15 MINUTE INH ONE (15:07)
[2018-08-06] MEDS ORDERED: PROPOFOL 200 MG/20 ML VIAL IV ONE (15:07)
[2018-08-06] MEDS ORDERED: PHENYLEPHRINE 1 MG/10 ML SYRINGE IV ONE (15:07)
[2018-08-06] MEDS ORDERED: fentaNYL 100 MCG/2 ML VIAL ONE (15:07)
[2018-08-06 15:24] LABS: Amorphous Crystals,Urine Occasional /HPF (Few); Apearance,Urine CLOUDY (Clear); Bilirubin,Urine Negative (Negative); Blood, Urine Negative (Negative); Glucose,Urine (UA) Negative (Negative); Ketones,Urine 5 mg/dL (Negative); Mucus,Urine Occasional /LPF (Occasional); Nitrite,Urine Negative (Negative); Protein,Urine 30 MG/DL; Uric Acid Crystals,Urine Occasional /HPF (<1); Urine Specific Gravity 1.016 (1.001-1.035); Urine Urobilinogen < 2.0 EU/DL (0.2-1.0); WBC,Urine 7 /HPF (0-6)
[2018-08-06 15:25] LABS: Urine Color Yellow (Yellow)
[2018-08-06] MEDS ORDERED: ONDANSETRON 4 MG/2 ML VIAL ONE (15:35)
[2018-08-06] MEDS ORDERED: MORPHINE 10 MG/1 ML VIAL IV PRN (15:35)
[2018-08-06] MEDS ORDERED: ONDANSETRON 4 MG/2 ML VIAL IV PRN (15:35)
[2018-08-06] MEDS ORDERED: MORPHINE 10 MG/1 ML VIAL ONE (15:35)
[2018-08-06 16:26] LABS: Hematocrit 31.2 VOL% (42.0-52.0); Hemoglobin 9.6 GM/DL (14.0-18.0)
[2018-08-06] MEDS: ceFAZolin 2,000 MG in PREMIX 1 EACH IV SCH (20:43)
[2018-08-06] MEDS: GABAPENTIN 300 MG CAPSULE PO SCH (20:55)
[2018-08-06] MEDS ORDERED: dilTIAZem Drip 125 MG/125 ML PREMIX IV SCH (23:30)
[2018-08-07 03:48] LABS: Basophils % 0.2 % (0.0-0.8); Hemoglobin 9.5 GM/DL (14.0-18.0); Immature Granulocytes % 2.2 %; Lymphocytes # 0.6 10*3/uL (1.4-4.0); Lymphocytes % 3.5 % (21.2-54.2); Mean Corpuscular HGB Conc 30.6 GM/DL (32-36); Mean Corpuscular Hemoglobin 28 PG (27-34); Mean Corpuscular Volume 92.5 FL (87-102); Mean Platelet Volume 11.1 FL (9.6-12.0); Monocytes # 1.5 10*3/uL (0.11-0.8); Monocytes % 8.1 % (1.7-12.7); Neutrophils # 15.3 10*3/uL (1.4-7.4); Platelet Count 348 T/CUMM (130-400); Red Blood Count 3.35 MC/CUMM (3.8-5.5); Red Cell Distribution Width 14.4 % (9.3-17.3); White Blood Count 17.8 T/CUMM (4-12)
[2018-08-07 04:03] LABS: Bilirubin,Total 1.1 MG/DL (0.2-1.0); Calcium 7.9 MG/DL (8.5-10.1); Osmolality,Calculated 294.4 MOS/KG (273-304); Potassium 5.2 MMOL/L (3.5-5.1); Total Protein 6.1 G/DL (6.4-8.3)
[2018-08-07 04:16] LABS: Lymphocytes 4 % (20-55); Segmented Neutrophils 90 % (50-85)
[2018-08-07 04:17] LABS: Hypochromasia Slight; Platelet Estimate Normal; Polychromasia Few
[2018-08-07 04:18] LABS: Total Cells Counted 100
[2018-08-07] MEDS: ceFAZolin 2,000 MG in PREMIX 1 EACH IV SCH (05:16)
[2018-08-07] MEDS: ALBUTEROL/IPRATROPIUM 3 ML NEB RESP TX SCH ×4 (07:08→18:58)
[2018-08-07] MEDS: DOCUSATE SODIUM 100 MG CAPSULE PO SCH (09:11)
[2018-08-07] MEDS: SIMVASTATIN 10 MG TABLET PO SCH (09:11)
[2018-08-07] MEDS: BISACODYL 5 MG TABLET PO SCH (09:11)
[2018-08-07] MEDS: CARVEDILOL 3.125 MG TABLET PO SCH ×2 (09:11→17:38)
[2018-08-07] MEDS: amLODIPine 2.5 MG TABLET PO SCH (09:12)
[2018-08-07] MEDS: FERROUS SULFATE 325 MG TABLET PO SCH (09:12)
[2018-08-07] MEDS: glipiZIDE 5 MG TABLET PO SCH ×2 (09:12→17:38)
[2018-08-07] MEDS: ASCORBIC ACID 500 MG TABLET PO SCH (09:13)
[2018-08-07] MEDS: RANOLAZINE 500 MG TABLET PO SCH (09:14)
[2018-08-07] MEDS: INSULIN LISPRO 100 UNIT/ML SUBCUT SCH ×3 (09:14→17:38)
[2018-08-07] MEDS: POLYETHYLENE GLYCOL POWDER 17 GM PACK PO SCH (09:19)
[2018-08-07] MEDS: LEVOFLOXACIN INJ 250 MG in PREMIX 1 EACH IV SCH (11:32)
[2018-08-07] MEDS: CLINDAMYCIN INJ 300 MG in PREMIX 1 EACH IV SCH ×2 (11:32→17:39)
[2018-08-07] MEDS: SODIUM CHLORIDE 0.45% 1,000 ML IV SCH (17:38)
[2018-08-08] MEDS: DOCUSATE SODIUM 100 MG CAPSULE PO SCH ×3 (00:49→22:17)
[2018-08-08] MEDS: RANOLAZINE 500 MG TABLET PO SCH ×3 (00:49→22:16)
[2018-08-08] MEDS: ASCORBIC ACID 500 MG TABLET PO SCH ×3 (00:49→22:16)
[2018-08-08] MEDS: FERROUS SULFATE 325 MG TABLET PO SCH ×3 (00:49→22:17)
[2018-08-08] MEDS: GABAPENTIN 300 MG CAPSULE PO SCH ×2 (00:49→22:17)
[2018-08-08] MEDS: ALBUTEROL/IPRATROPIUM 3 ML NEB RESP TX SCH ×4 (01:13→19:32)
[2018-08-08] MEDS: CLINDAMYCIN INJ 300 MG in PREMIX 1 EACH IV SCH ×3 (03:18→20:21)
[2018-08-08] MEDS: SODIUM CHLORIDE 0.45% 1,000 ML IV SCH ×3 (03:20→17:09)
[2018-08-08 05:03] LABS: Basophils % 0.2 % (0.0-0.8); Eosinophils # 0.2 10*3/uL (0.0-0.87); Eosinophils % 2.3 % (0.00-10.9); Hematocrit 25.3 VOL% (42.0-52.0); Hemoglobin 7.8 GM/DL (14.0-18.0); Immature Granulocytes % 1.5 %; Immature Granulocytes Absolute 0.15 #; Lymphocytes # 0.5 10*3/uL (1.4-4.0); Lymphocytes % 5.2 % (21.2-54.2); Mean Corpuscular HGB Conc 30.8 GM/DL (32-36); Mean Corpuscular Hemoglobin 29 PG (27-34); Mean Corpuscular Volume 92.3 FL (87-102); Mean Platelet Volume 11.3 FL (9.6-12.0); Monocytes # 0.7 10*3/uL (0.11-0.8); Monocytes % 7.3 % (1.7-12.7); Neutrophils # 8.4 10*3/uL (1.4-7.4); Neutrophils % 83.5 % (38.7-73.9); Platelet Count 295 T/CUMM (130-400); Red Blood Count 2.74 MC/CUMM (3.8-5.5); Red Cell Distribution Width 14.3 % (9.3-17.3); White Blood Count 10.1 T/CUMM (4-12)
[2018-08-08 05:28] LABS: Calcium 7.7 MG/DL (8.5-10.1); Calcium 7.8 MG/DL (8.5-10.1); Osmolality,Calculated 278.4 MOS/KG (273-304); Potassium 4.5 MMOL/L (3.5-5.1)
[2018-08-08] MEDS ORDERED: SODIUM CHLORIDE 0.9% 1,000 ML IV PRN (09:41)
[2018-08-08] MEDS: BISACODYL 5 MG TABLET PO SCH (09:42)
[2018-08-08] MEDS: SIMVASTATIN 10 MG TABLET PO SCH (09:46)
[2018-08-08] MEDS: CARVEDILOL 3.125 MG TABLET PO SCH ×2 (09:48→20:17)
[2018-08-08] MEDS: glipiZIDE 5 MG TABLET PO SCH ×2 (09:48→20:17)
[2018-08-08] MEDS: INSULIN LISPRO 100 UNIT/ML SUBCUT SCH ×3 (09:49→19:18)
[2018-08-08] MEDS: amLODIPine 2.5 MG TABLET PO SCH (09:50)
[2018-08-08] MEDS: POLYETHYLENE GLYCOL POWDER 17 GM PACK PO SCH (10:02)
[2018-08-08] MEDS: LEVOFLOXACIN INJ 250 MG in PREMIX 1 EACH IV SCH (11:58)
[2018-08-09] MEDS: ALBUTEROL/IPRATROPIUM 3 ML NEB RESP TX SCH ×4 (00:57→19:36)
[2018-08-09] MEDS: CLINDAMYCIN INJ 300 MG in PREMIX 1 EACH IV SCH ×3 (03:17→17:48)
[2018-08-09] MEDS: SODIUM CHLORIDE 0.45% 1,000 ML IV SCH ×3 (03:29→15:52)
[2018-08-09 04:26] LABS: Basophils % 0.3 % (0.0-0.8); Eosinophils # 0.1 10*3/uL (0.0-0.87); Eosinophils % 1.2 % (0.00-10.9); Hematocrit 31.4 VOL% (42.0-52.0); Immature Granulocytes % 1.7 %; Immature Granulocytes Absolute 0.19 #; Lymphocytes # 0.7 10*3/uL (1.4-4.0); Lymphocytes % 6.1 % (21.2-54.2); Mean Corpuscular HGB Conc 30.9 GM/DL (32-36); Mean Corpuscular Hemoglobin 28 PG (27-34); Mean Platelet Volume 12.4 FL (9.6-12.0); Monocytes % 9.2 % (1.7-12.7); Neutrophils # 8.9 10*3/uL (1.4-7.4); Neutrophils % 81.5 % (38.7-73.9); Platelet Count 254 T/CUMM (130-400); Red Blood Count 3.45 MC/CUMM (3.8-5.5); Red Cell Distribution Width 14.6 % (9.3-17.3); White Blood Count 10.9 T/CUMM (4-12)
[2018-08-09 04:33] LABS: Hemoglobin 9.7 GM/DL (14.0-18.0)
[2018-08-09 06:25] LABS: Calcium 7.8 MG/DL (8.5-10.1); Osmolality,Calculated 270.7 MOS/KG (273-304); Potassium 5.1 MMOL/L (3.5-5.1)
[2018-08-09] MEDS: RANOLAZINE 500 MG TABLET PO SCH ×2 (10:16→20:52)
[2018-08-09] MEDS: ASCORBIC ACID 500 MG TABLET PO SCH ×2 (10:16→20:52)
[2018-08-09] MEDS: POLYETHYLENE GLYCOL POWDER 17 GM PACK PO SCH (10:16)
[2018-08-09] MEDS: FERROUS SULFATE 325 MG TABLET PO SCH ×2 (10:16→20:52)
[2018-08-09] MEDS: SIMVASTATIN 10 MG TABLET PO SCH (10:17)
[2018-08-09] MEDS: BISACODYL 5 MG TABLET PO SCH (10:17)
[2018-08-09] MEDS: CARVEDILOL 3.125 MG TABLET PO SCH ×2 (10:17→16:21)
[2018-08-09] MEDS: DOCUSATE SODIUM 100 MG CAPSULE PO SCH ×2 (10:17→20:52)
[2018-08-09] MEDS: glipiZIDE 5 MG TABLET PO SCH ×2 (10:17→16:21)
[2018-08-09] MEDS: amLODIPine 2.5 MG TABLET PO SCH (10:17)
[2018-08-09] MEDS: INSULIN LISPRO 100 UNIT/ML SUBCUT SCH ×3 (10:18→16:28)
[2018-08-09] MEDS: LEVOFLOXACIN INJ 250 MG in PREMIX 1 EACH IV SCH (10:20)
[2018-08-09] MEDS: traZODone 50 MG TABLET PO PRN (20:52)
[2018-08-09] MEDS: GABAPENTIN 300 MG CAPSULE PO SCH (20:52)
[2018-08-10] MEDS: ALBUTEROL/IPRATROPIUM 3 ML NEB RESP TX SCH ×4 (00:16→19:16)
[2018-08-10] MEDS: CLINDAMYCIN INJ 300 MG in PREMIX 1 EACH IV SCH ×2 (03:02→10:20)
[2018-08-10 04:27] LABS: Basophils # 0.1 10*3/uL (0.0-0.2); Basophils % 0.5 % (0.0-0.8); Eosinophils # 0.3 10*3/uL (0.0-0.87); Eosinophils % 2.2 % (0.00-10.9); Hematocrit 36.6 VOL% (42.0-52.0); Hemoglobin 11.3 GM/DL (14.0-18.0); Immature Granulocytes % 2.9 %; Immature Granulocytes Absolute 0.36 #; Lymphocytes # 0.8 10*3/uL (1.4-4.0); Mean Corpuscular HGB Conc 30.9 GM/DL (32-36); Mean Corpuscular Hemoglobin 28 PG (27-34); Mean Corpuscular Volume 90.6 FL (87-102); Mean Platelet Volume 10.9 FL (9.6-12.0); Monocytes # 1.2 10*3/uL (0.11-0.8); Monocytes % 9.3 % (1.7-12.7); NRBC # 0.02 10*3/uL; Neutrophils # 9.9 10*3/uL (1.4-7.4); Neutrophils % 79.1 % (38.7-73.9); Platelet Count 391 T/CUMM (130-400); Red Blood Count 4.04 MC/CUMM (3.8-5.5); Red Cell Distribution Width 15.1 % (9.3-17.3); White Blood Count 12.5 T/CUMM (4-12)
[2018-08-10 05:01] LABS: Osmolality,Calculated 274.4 MOS/KG (273-304); Potassium 4.4 MMOL/L (3.5-5.1)
[2018-08-10] MEDS: INSULIN LISPRO 100 UNIT/ML SUBCUT SCH ×3 (07:54→16:13)
[2018-08-10] MEDS: SIMVASTATIN 10 MG TABLET PO SCH (09:31)
[2018-08-10] MEDS: ASCORBIC ACID 500 MG TABLET PO SCH ×2 (09:31→21:56)
[2018-08-10] MEDS: FERROUS SULFATE 325 MG TABLET PO SCH ×2 (09:32→21:56)
[2018-08-10] MEDS: CARVEDILOL 3.125 MG TABLET PO SCH ×3 (09:32→16:43)
[2018-08-10] MEDS: amLODIPine 2.5 MG TABLET PO SCH (09:32)
[2018-08-10] MEDS: RANOLAZINE 500 MG TABLET PO SCH ×2 (09:32→21:56)
[2018-08-10] MEDS: BISACODYL 5 MG TABLET PO SCH (09:32)
[2018-08-10] MEDS: glipiZIDE 5 MG TABLET PO SCH ×3 (09:32→16:43)
[2018-08-10] MEDS: DOCUSATE SODIUM 100 MG CAPSULE PO SCH ×2 (09:32→21:55)
[2018-08-10] MEDS: POLYETHYLENE GLYCOL POWDER 17 GM PACK PO SCH (09:32)
[2018-08-10] MEDS: LEVOFLOXACIN INJ 250 MG in PREMIX 1 EACH IV SCH (11:40)
[2018-08-10] MEDS: SODIUM CHLORIDE 0.45% 1,000 ML IV SCH (15:20)
[2018-08-10] MEDS: ACETAMINOPHEN 325 MG TABLET PO PRN (16:44)
[2018-08-10] MEDS: HALOPERIDOL 5 MG/ML AMP IV PRN (17:13)
[2018-08-10] MEDS: GABAPENTIN 300 MG CAPSULE PO SCH (21:56)
[2018-08-11] MEDS: ALBUTEROL/IPRATROPIUM 3 ML NEB RESP TX SCH ×4 (00:17→20:11)
[2018-08-11] MEDS: ACETAMINOPHEN 325 MG TABLET PO PRN ×2 (05:55→12:22)
[2018-08-11 06:03] LABS: Basophils # 0.1 10*3/uL (0.0-0.2); Basophils % 0.4 % (0.0-0.8); Eosinophils # 0.2 10*3/uL (0.0-0.87); Eosinophils % 1.6 % (0.00-10.9); Hematocrit 34.2 VOL% (42.0-52.0); Hemoglobin 10.6 GM/DL (14.0-18.0); Immature Granulocytes % 2.6 %; Immature Granulocytes Absolute 0.33 #; Lymphocytes # 0.5 10*3/uL (1.4-4.0); Lymphocytes % 4.1 % (21.2-54.2); Mean Corpuscular Hemoglobin 28 PG (27-34); Mean Corpuscular Volume 91.7 FL (87-102); Mean Platelet Volume 10.8 FL (9.6-12.0); Monocytes % 8.1 % (1.7-12.7); Neutrophils # 10.5 10*3/uL (1.4-7.4); Neutrophils % 83.2 % (38.7-73.9); Platelet Count 380 T/CUMM (130-400); Red Blood Count 3.73 MC/CUMM (3.8-5.5); Red Cell Distribution Width 15.3 % (9.3-17.3); White Blood Count 12.7 T/CUMM (4-12)
[2018-08-11 06:19] LABS: Calcium 7.9 MG/DL (8.5-10.1); Osmolality,Calculated 276.1 MOS/KG (273-304); Potassium 4.5 MMOL/L (3.5-5.1)
[2018-08-11 06:47] LABS: Anisocytosis 1+; Eosinophils 2 % (0-10); Lymphocytes 6 % (20-55); Macrocytosis 1+; Platelet Estimate Normal; Segmented Neutrophils 84 % (50-85); Total Cells Counted 100
[2018-08-11] MEDS: SIMVASTATIN 10 MG TABLET PO SCH (08:18)
[2018-08-11] MEDS: ASCORBIC ACID 500 MG TABLET PO SCH ×2 (08:18→20:44)
[2018-08-11] MEDS: LEVOFLOXACIN 500 MG TABLET PO SCH (08:18)
[2018-08-11] MEDS: CARVEDILOL 3.125 MG TABLET PO SCH ×2 (08:18→17:14)
[2018-08-11] MEDS: FERROUS SULFATE 325 MG TABLET PO SCH ×2 (08:18→20:44)
[2018-08-11] MEDS: RANOLAZINE 500 MG TABLET PO SCH ×2 (08:19→20:44)
[2018-08-11] MEDS: BISACODYL 5 MG TABLET PO SCH (08:19)
[2018-08-11] MEDS: DOCUSATE SODIUM 100 MG CAPSULE PO SCH ×2 (08:19→20:44)
[2018-08-11] MEDS: amLODIPine 2.5 MG TABLET PO SCH (08:19)
[2018-08-11] MEDS: glipiZIDE 5 MG TABLET PO SCH ×2 (08:19→17:10)
[2018-08-11] MEDS: POLYETHYLENE GLYCOL POWDER 17 GM PACK PO SCH ×2 (08:19→08:32)
[2018-08-11] MEDS: INSULIN LISPRO 100 UNIT/ML SUBCUT SCH ×3 (08:19→17:10)
[2018-08-11] MEDS: SODIUM CHLORIDE 0.45% 1,000 ML IV SCH (11:20)
[2018-08-11] MEDS: GABAPENTIN 300 MG CAPSULE PO SCH (20:44)
[2018-08-11] MEDS: traZODone 50 MG TABLET PO PRN (20:48)
[2018-08-12] MEDS: ALBUTEROL/IPRATROPIUM 3 ML NEB RESP TX SCH ×4 (01:13→19:20)
[2018-08-12] MEDS: ACETAMINOPHEN 325 MG TABLET PO PRN (05:42)
[2018-08-12] MEDS: SODIUM CHLORIDE 0.45% 1,000 ML IV SCH (06:52)
[2018-08-12] MEDS: FERROUS SULFATE 325 MG TABLET PO SCH ×2 (08:34→20:43)
[2018-08-12] MEDS: LEVOFLOXACIN 500 MG TABLET PO SCH (08:34)
[2018-08-12] MEDS: POLYETHYLENE GLYCOL POWDER 17 GM PACK PO SCH (08:34)
[2018-08-12] MEDS: CARVEDILOL 3.125 MG TABLET PO SCH ×2 (08:35→19:08)
[2018-08-12] MEDS: ASCORBIC ACID 500 MG TABLET PO SCH ×2 (08:35→20:44)
[2018-08-12] MEDS: glipiZIDE 5 MG TABLET PO SCH ×2 (08:35→17:41)
[2018-08-12] MEDS: DOCUSATE SODIUM 100 MG CAPSULE PO SCH ×2 (08:35→20:43)
[2018-08-12] MEDS: RANOLAZINE 500 MG TABLET PO SCH ×2 (08:35→20:43)
[2018-08-12] MEDS: amLODIPine 2.5 MG TABLET PO SCH (08:36)
[2018-08-12] MEDS: INSULIN LISPRO 100 UNIT/ML SUBCUT SCH ×3 (08:36→17:41)
[2018-08-12] MEDS: SIMVASTATIN 10 MG TABLET PO SCH (08:36)
[2018-08-12] MEDS: BISACODYL 5 MG TABLET PO SCH (08:36)
[2018-08-12] MEDS: traZODone 50 MG TABLET PO PRN (20:43)
[2018-08-12] MEDS: GABAPENTIN 300 MG CAPSULE PO SCH (20:43)
[2018-08-13] MEDS: ALBUTEROL/IPRATROPIUM 3 ML NEB RESP TX SCH ×4 (01:19→19:30)
[2018-08-13 04:35] LABS: Basophils % 0.3 % (0.0-0.8); Eosinophils # 0.1 10*3/uL (0.0-0.87); Eosinophils % 0.6 % (0.00-10.9); Hematocrit 35.5 VOL% (42.0-52.0); Hemoglobin 10.7 GM/DL (14.0-18.0); Immature Granulocytes % 4.5 %; Immature Granulocytes Absolute 0.54 #; Lymphocytes # 0.5 10*3/uL (1.4-4.0); Lymphocytes % 4.2 % (21.2-54.2); Mean Corpuscular HGB Conc 30.1 GM/DL (32-36); Mean Corpuscular Hemoglobin 28 PG (27-34); Mean Corpuscular Volume 93.7 FL (87-102); Mean Platelet Volume 10.6 FL (9.6-12.0); Monocytes # 0.8 10*3/uL (0.11-0.8); Neutrophils # 9.9 10*3/uL (1.4-7.4); Neutrophils % 83.4 % (38.7-73.9); Platelet Count 411 T/CUMM (130-400); Red Blood Count 3.79 MC/CUMM (3.8-5.5); Red Cell Distribution Width 15.2 % (9.3-17.3); White Blood Count 11.9 T/CUMM (4-12)
[2018-08-13 04:59] LABS: Potassium 4.9 MMOL/L (3.5-5.1)
[2018-08-13 05:06] LABS: Hypochromasia 1+; Lymphocytes 6 % (20-55); Platelet Estimate Adequate; Segmented Neutrophils 89 % (50-85); Total Cells Counted 100
[2018-08-13 05:07] LABS: Macrocytosis Slight; Ovalocytes Slight
[2018-08-13] MEDS: SODIUM CHLORIDE 0.45% 1,000 ML IV SCH (05:12)
[2018-08-13] MEDS: ACETAMINOPHEN 325 MG TABLET PO PRN ×2 (05:34→21:38)
[2018-08-13] MEDS: LEVOFLOXACIN 500 MG TABLET PO SCH (10:15)
[2018-08-13] MEDS: POLYETHYLENE GLYCOL POWDER 17 GM PACK PO SCH (10:15)
[2018-08-13] MEDS: FERROUS SULFATE 325 MG TABLET PO SCH ×2 (10:15→21:33)
[2018-08-13] MEDS: SIMVASTATIN 10 MG TABLET PO SCH (10:15)
[2018-08-13] MEDS: DOCUSATE SODIUM 100 MG CAPSULE PO SCH ×2 (10:15→21:33)
[2018-08-13] MEDS: CARVEDILOL 3.125 MG TABLET PO SCH ×2 (10:15→17:43)
[2018-08-13] MEDS: ASCORBIC ACID 500 MG TABLET PO SCH ×2 (10:15→21:33)
[2018-08-13] MEDS: RANOLAZINE 500 MG TABLET PO SCH ×2 (10:15→21:33)
[2018-08-13] MEDS: BISACODYL 5 MG TABLET PO SCH (10:15)
[2018-08-13] MEDS: amLODIPine 2.5 MG TABLET PO SCH (10:15)
[2018-08-13] MEDS: glipiZIDE 5 MG TABLET PO SCH ×2 (10:15→17:43)
[2018-08-13] MEDS: INSULIN LISPRO 100 UNIT/ML SUBCUT SCH ×3 (11:00→17:43)
[2018-08-13] MEDS: GABAPENTIN 300 MG CAPSULE PO SCH (21:33)
[2018-08-13] MEDS: traZODone 50 MG TABLET PO PRN (21:38)
[2018-08-14] MEDS: ALBUTEROL/IPRATROPIUM 3 ML NEB RESP TX SCH ×4 (00:45→18:47)
[2018-08-14 06:32] LABS: Basophils % 0.3 % (0.0-0.8); Eosinophils # 0.1 10*3/uL (0.0-0.87); Eosinophils % 0.8 % (0.00-10.9); Hematocrit 35.9 VOL% (42.0-52.0); Hemoglobin 10.7 GM/DL (14.0-18.0); Immature Granulocytes Absolute 0.43 #; Lymphocytes # 0.5 10*3/uL (1.4-4.0); Lymphocytes % 4.4 % (21.2-54.2); Mean Corpuscular HGB Conc 29.8 GM/DL (32-36); Mean Corpuscular Hemoglobin 28 PG (27-34); Mean Corpuscular Volume 94.2 FL (87-102); Mean Platelet Volume 10.1 FL (9.6-12.0); Monocytes % 9.2 % (1.7-12.7); NRBC # 0.02 10*3/uL; Neutrophils # 8.8 10*3/uL (1.4-7.4); Neutrophils % 81.3 % (38.7-73.9); Platelet Count 394 T/CUMM (130-400); Red Blood Count 3.81 MC/CUMM (3.8-5.5); Red Cell Distribution Width 15.4 % (9.3-17.3); White Blood Count 10.8 T/CUMM (4-12)
[2018-08-14 06:52] LABS: Calcium 8.4 MG/DL (8.5-10.1); Potassium 4.8 MMOL/L (3.5-5.1)
[2018-08-14 06:53] LABS: Hypochromasia 1+; Lymphocytes 2 % (20-55); Macrocytosis Slight; Nucleated Red Blood Cells 2 (0-5); Platelet Estimate Adequate; Segmented Neutrophils 91 % (50-85); Total Cells Counted 100
[2018-08-14 07:18] LABS: VLDL CHOLESTEROL 14.4 MG/DL
[2018-08-14] MEDS: FERROUS SULFATE 325 MG TABLET PO SCH ×2 (09:26→21:10)
[2018-08-14] MEDS: amLODIPine 2.5 MG TABLET PO SCH (09:26)
[2018-08-14] MEDS: CARVEDILOL 3.125 MG TABLET PO SCH ×2 (09:26→16:51)
[2018-08-14] MEDS: DOCUSATE SODIUM 100 MG CAPSULE PO SCH ×2 (09:26→21:09)
[2018-08-14] MEDS: BISACODYL 5 MG TABLET PO SCH (09:26)
[2018-08-14] MEDS: glipiZIDE 5 MG TABLET PO SCH ×2 (09:26→16:51)
[2018-08-14] MEDS: SIMVASTATIN 10 MG TABLET PO SCH (09:26)
[2018-08-14] MEDS: RANOLAZINE 500 MG TABLET PO SCH ×2 (09:26→21:09)
[2018-08-14] MEDS: ASCORBIC ACID 500 MG TABLET PO SCH ×2 (09:27→21:09)
[2018-08-14] MEDS: LEVOFLOXACIN 500 MG TABLET PO SCH (09:27)
[2018-08-14] MEDS: INSULIN LISPRO 100 UNIT/ML SUBCUT SCH ×3 (09:42→16:51)
[2018-08-14] MEDS: POLYETHYLENE GLYCOL POWDER 17 GM PACK PO SCH (11:37)
[2018-08-14] MEDS: ACETAMINOPHEN 325 MG TABLET PO PRN (18:42)
[2018-08-14] MEDS: GABAPENTIN 300 MG CAPSULE PO SCH (21:10)
[2018-08-15] MEDS: ALBUTEROL/IPRATROPIUM 3 ML NEB RESP TX SCH ×4 (00:33→19:56)
[2018-08-15] MEDS: glipiZIDE 5 MG TABLET PO SCH ×2 (08:30→17:04)
[2018-08-15] MEDS: INSULIN LISPRO 100 UNIT/ML SUBCUT SCH ×3 (09:00→17:03)
[2018-08-15] MEDS: RANOLAZINE 500 MG TABLET PO SCH ×2 (09:22→21:18)
[2018-08-15] MEDS: DOCUSATE SODIUM 100 MG CAPSULE PO SCH ×2 (09:23→21:18)
[2018-08-15] MEDS: ASCORBIC ACID 500 MG TABLET PO SCH ×2 (09:23→21:19)
[2018-08-15] MEDS: FERROUS SULFATE 325 MG TABLET PO SCH ×2 (09:23→21:18)
[2018-08-15] MEDS: amLODIPine 2.5 MG TABLET PO SCH (09:23)
[2018-08-15] MEDS: CARVEDILOL 3.125 MG TABLET PO SCH ×2 (09:23→17:04)
[2018-08-15] MEDS: LEVOFLOXACIN 500 MG TABLET PO SCH (09:23)
[2018-08-15] MEDS: SIMVASTATIN 10 MG TABLET PO SCH (09:23)
[2018-08-15] MEDS: BISACODYL 5 MG TABLET PO SCH (09:24)
[2018-08-15] MEDS: POLYETHYLENE GLYCOL POWDER 17 GM PACK PO SCH (09:24)
[2018-08-15] MEDS: methylPREDNISolone SOD SUC 40 MG/1 ML VIAL IV SCH ×2 (12:13→21:18)
[2018-08-15] MEDS: GABAPENTIN 300 MG CAPSULE PO SCH (21:18)
[2018-08-16] MEDS: ALBUTEROL/IPRATROPIUM 3 ML NEB RESP TX SCH ×3 (00:29→14:09)
[2018-08-16] MEDS: ACETAMINOPHEN 325 MG TABLET PO PRN (04:06)
[2018-08-16] MEDS: methylPREDNISolone SOD SUC 40 MG/1 ML VIAL IV SCH ×2 (04:06→11:33)
[2018-08-16] MEDS: INSULIN LISPRO 100 UNIT/ML SUBCUT SCH ×2 (08:54→13:00)
[2018-08-16] MEDS: RANOLAZINE 500 MG TABLET PO SCH (08:55)
[2018-08-16] MEDS: glipiZIDE 5 MG TABLET PO SCH (08:55)
[2018-08-16] MEDS: amLODIPine 2.5 MG TABLET PO SCH (08:55)
[2018-08-16] MEDS: ASCORBIC ACID 500 MG TABLET PO SCH (08:55)
[2018-08-16] MEDS: DOCUSATE SODIUM 100 MG CAPSULE PO SCH (08:55)
[2018-08-16] MEDS: POLYETHYLENE GLYCOL POWDER 17 GM PACK PO SCH (08:56)
[2018-08-16] MEDS: SIMVASTATIN 10 MG TABLET PO SCH (08:56)
[2018-08-16] MEDS: BISACODYL 5 MG TABLET PO SCH (08:56)
[2018-08-16] MEDS: LEVOFLOXACIN 500 MG TABLET PO SCH (08:56)
[2018-08-16] MEDS: FERROUS SULFATE 325 MG TABLET PO SCH (08:56)
[2018-08-16] MEDS: CARVEDILOL 3.125 MG TABLET PO SCH (08:56)
[2018-08-16 12:38] VITALS: BP 130/80
== END 2018-08-16 15:40 | disposition swing bed (61) | DRG 163 ==
LOC: N.ED 11:01 → N.EDINP 11:01 → N.TELEN 16:00 → N.CC 07-26 00:14 → SUATTDRO 07-26 11:41 → N.5E 08-03 11:49 → N.ICU 08-06 15:57 → N.3E 08-07 16:22
PROVIDERS: ADMIT Surgery; ATTEND Internal Medicine